=== PATIENT | female | born 1970 | race Caucasian/White ===

== ENCOUNTER 2018-02-08 17:27 | Emergency (ER) | payer SELFPAY ==
--- NOTE | 2018-02-08 18:11 | Emergency Department Record ---
History of Present Illness - General Chief complaint: Abscess Stated complaint: KNOT IN GROIN AREA Time Seen by Provider: 02/08/18 18:06 Source: Patient Mode of Arrival: Ambulatory Limitations: No limitations - History of Present Illness Initial comments: 48 yo female presents to ED for evaluation of swelling, pain, and drainage to the left vaginal region that began 2 days ago. Patient denies fevers, chills, nausea, vomiting, or recent illness. Patient reports a history of "borderline" DM, HTN, and hyperlipidemia. 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 MD complaint: Abscess/boil Onset/Timin -: Days(s) Location: Genitals Severity: Moderate Quality: Aching Consistency: Constant Improves with: None Worsens with: None Context: None Associated symptoms: Denies other symptoms Treatments Prior to Arrival: Attempted to drain pus at home - Related Data Home Medications Medication Instructions Recorded Confirmed Last Taken Clonazepam [Klonopin] 2 mg PO ASDIR 02/08/18 02/08/18 02/08/18 Duloxetine HCl [Cymbalta] 30 mg PO DAILY 02/08/18 02/08/18 02/07/18 Duloxetine HCl [Cymbalta] 60 mg PO DAILY 02/08/18 02/08/18 02/07/18 Previous Rx's Medication Instructions Recorded Clindamycin HCl 300 mg PO QID #27 capsule 02/08/18 Allergies Allergy/AdvReac Type Severity Reaction Status Date / Time Penicillins Allergy ANAPHYLAXIS Verified 02/08/18 17:56 Review of Systems Constitutional: Denies: Chills, Fever, Malaise, Night sweats Eyes: Denies: Eye discharge, Eye pain ENT: Denies: Congestion, Ear pain, Epistaxis Respiratory: Denies: Cough, Dyspnea Cardiovascular: Denies: Chest pain, Dyspnea on exertion Endocrine: Denies: Fatigue, Heat or cold intolerance Gastrointestinal: Denies: Abdominal pain, Nausea, Vomiting Genitourinary: Reports: Other (Pain to the left vaginal region). Denies: Incontinence, Retention Musculoskeletal: Denies: Arthralgia, Back pain Skin: Denies: Bruising, Change in color Neurological: Denies: Abnormal gait, Confusion, Headache Psychiatric: Denies: Anxiety Hematological/Lymphatic: Denies: Anemia, Blood Clots Physical Exam - General General Appearance: Alert, Oriented x3, Cooperative, Moderate distress Limitations: No limitations - Head Head exam: Atraumatic, Normocephalic, Normal inspection Head exam detail: negative: Abrasion, Contusion, Rudd's sign, General tenderness, Hematoma, Laceration - Eye Eye exam: Normal appearance. negative: Conjunctival injection, Periorbital swelling, Periorbital tenderness, Scleral icterus - ENT Ear exam: negative: Auricular hematoma, Auricular trauma Nasal Exam: negative: Active bleeding, Discharge, Dried blood, Foreign body Mouth exam: negative: Drooling, Laceration, Muffled voice, Tongue elevation - Neck Neck exam: Normal inspection. negative: Meningismus, Tenderness - Respiratory Respiratory exam: Normal lung sounds bilaterally. negative: Respiratory distress, Rhonchi, Stridor, Wheezes - Cardiovascular Cardiovascular Exam: Regular rate, Normal rhythm, Normal heart sounds - GI/Abdominal GI/Abdominal exam: Soft. negative: Rebound, Rigid, Tenderness - Rectal Rectal exam: Deferred - exam: Other (STS, induration, and fluctuance to the left vulva on examination.) - Extremities Extremities exam: Normal inspection. negative: Pedal edema, Tenderness - Back Back exam: Denies: CVA tenderness (R), CVA tenderness (L) - Neurological Neurological exam: Alert, Normal gait, Oriented X3 - Psychiatric Psychiatric exam: Normal affect, Normal mood - Skin Skin exam: Normal color. negative: Abrasion Type of lesion: negative: abrasion Course - Reevaluation(s) Reevaluation #1: 02/08/18 18:29 Procedure Note: Left labial region was cleaned and prepped in sterile fashion, anesthetized with 1.5 mL of 1% Lidocaine with epinephrine with good anesthesia. The greatest area of fluctuance was incised with #11 blade, probed to break up loculations with sero-sanguinous discharge. Area was left open to drain. Patient tolerated the procedure well without complications. Will initiate Clindamycin and arrange for follow-up with Dr. Vidal in the [facility] next Tuesday for further evaluation. Disposition Disposition: Discharge Clinical Impression: Abscess, vulva Disposition: Home, Self-Care Condition: (2) Stable Instructions: Abscess Incision and Drainage (ED) Additional Instructions: Return to ED if your symptoms worsen or if you have any concerns. Clindamycin as directed. Warm soaks twice daily. Follow-up with Dr. Vidal in the [facility] next Tuesday or your family doctor in 1-3 days as directed. Prescriptions: Clindamycin HCl 300 mg PO QID #27 capsule Referrals: BILL VIDAL [DOCTOR OF OSTEOPATH] - [facility] [Provider Group] Forms: Patient Portal Access Time of Disposition: 18:11 Quality - Quality Measures Quality Measures: N/A - Blood Pressure Screening Does Patient Have Any of the Following: No Blood Pressure Classification: Pre-Hypertensive BP Reading Systolic Measurement: 127 Diastolic Measurement: 72 Screening for High Blood Pressure: < Pre-Hypertensive BP, F/U Documented > [ G8950] Pre-Hypertensive Follow-up Interventions: Referral to alternative/primary care provider.
[2018-02-08] MEDS: CLINDAMYCIN 150 MG CAP PO ONE (18:31)
== END 2018-02-08 18:51 | disposition home or self-care (01) ==
LOC: ER 17:27
DX: N76.4 Abscess of vulva (principal); I10 Essential (primary) hypertension
CPT/HCPCS: 56405; 99284

== ENCOUNTER 2018-03-28 18:14 | Emergency (ER) | payer BC ==
[2018-03-28] MEDS ORDERED: ONDANSETRON HCL IV 4 MG/2 ML VIAL IVP ONE ×2 (18:37→19:38)
--- NOTE | 2018-03-28 18:43 | Emergency Department Record ---
History of Present Illness - General Chief complaint: Vomiting Stated complaint: VOMITING,CANT EAT, CANT URINATE Time Seen by Provider: 03/28/18 18:36 Source: Patient Mode of Arrival: Ambulatory Limitations: No limitations - History of Present Illness Initial comments: 48 yo female presents with nausea, vomiting and diarrhea since Tuesday. Non bloody. She continues to have several episodes daily of each. No known sick contacts. No fevers. The symptoms worsen with eating. No cough, shortness of breath, chest pain. She has lower abdominal cramps. Her urine is darker orange at this time. No current or recent antibiotics. PCP is the [facility]. MD complaint: Diarrhea, Nausea, Vomiting -: Days(s) Description of Vomiting: Watery Description of Diarrhea: Water Location: Other (across the lower abdomen) Radiation: Other (across the lower abdomen) Severity: Moderate Quality: Cramping Consistency: Intermittent Improves with: None Worsens with: Eating Context: Other Associated Symptoms: Loss of appetite, Nausea/vomiting, Other (diarrhea) - Related Data Previous Rx's Medication Instructions Recorded Dicyclomine HCl [Bentyl] 10 mg PO Q8H #20 cap 03/28/18 Metronidazole [Flagyl] 500 mg PO BID #14 tablet 03/28/18 Ondansetron [Zofran Odt] 4 mg PO Q8H #15 tab.rapdis 03/28/18 Allergies Allergy/AdvReac Type Severity Reaction Status Date / Time Penicillins Allergy ANAPHYLAXIS Verified 03/28/18 18:47 Review of Systems Constitutional: Denies: Chills, Fever, Malaise, Weakness Eyes: Denies: Eye discharge ENT: Denies: Congestion Respiratory: Denies: Cough, Dyspnea, Hemoptysis Cardiovascular: Denies: Chest pain, Syncope Endocrine: Denies: Fatigue Gastrointestinal: Reports: Abdominal pain, Diarrhea, Nausea, Vomiting. Denies: Constipation, Hematemesis, Hematochezia, Melena Genitourinary: Reports: Discharge (mucous like for several weeks). Denies: Dysuria, Incontinence, Retention (decreased output without retention), Urgency Musculoskeletal: Denies: Arthralgia, Back pain, Joint swelling, Myalgia, Neck pain Skin: Denies: Bruising, Change in color, Rash Neurological: Denies: Headache Psychiatric: Denies: Anxiety Hematological/Lymphatic: Denies: Easy bleeding, Easy bruising, Swollen glands Past Medical History - SOCIAL HISTORY Smoking Status: Never smoker Drug Use: None - RESPIRATORY Hx Respiratory Disorders: No - CARDIOVASCULAR Hx Cardio Disorders: No - NEURO Hx Neuro Disorders: No - GI Comment:: bariatric - Hx Genitourinary Disorders: No - ENDOCRINE Hx Endocrine Disorders: No - MUSCULOSKELETAL Hx Musculoskeletal Disorders: No - PSYCH Hx Psych Problems: Yes Hx Anxiety: Yes - HEMATOLOGY/ONCOLOGY Hx Hematology/Oncology Disorders: No Family Medical History Hx Heart Disease: Father, Grandparents Physical Exam - General General Appearance: Alert, Oriented x3, Cooperative, No acute distress Limitations: No limitations - Head Head exam: Normal inspection - Eye Eye exam: Normal appearance, PERRL. negative: Conjunctival injection, Scleral icterus - ENT ENT exam: Normal exam, Mucous membranes moist Ear exam: Normal external inspection Nasal Exam: Normal inspection Mouth exam: Normal external inspection - Neck Neck exam: Normal inspection, Tenderness - Respiratory Respiratory exam: Normal lung sounds bilaterally. negative: Accessory muscle use, Decreased breath sounds, Prolonged expiratory, Respiratory distress, Stridor, Wheezes - Cardiovascular Cardiovascular Exam: Regular rate, Normal rhythm, Normal heart sounds - GI/Abdominal GI/Abdominal exam: Soft, Normal bowel sounds, Tenderness (mild tenderness of a very soft lower abdomen). negative: Guarding, Rebound, Rigid - Rectal Rectal exam: Deferred - exam: Deferred - Extremities Extremities exam: Normal inspection - Back Back exam: Reports: Normal inspection. Denies: CVA tenderness (R), CVA tenderness (L) - Neurological Neurological exam: Alert, Normal gait, Oriented X3 - Psychiatric Psychiatric exam: Normal affect, Normal mood - Skin Skin exam: Dry, Intact, Normal color, Warm Course - Reevaluation(s) Reevaluation #1: 03/28/18 19:04 The vitals are without significant abnormalities The CBC demonstrates a hemoglobin of 8.8 but the MCV is 74 likely chronic. Normal WBC count. 03/28/18 19:08 The patient states she has known iron deficiency anemia for a long time. She has been as low as 6 in the past. 03/28/18 19:15 The UA is negative except small ketones 03/28/18 19:27 CMP and lipase were reviewed. K is 3.3. Otherwise no acute changes 03/28/18 19:31 The patient is doing better. Mild nausea still and not ready for PO. Will given IV Acetaminophen instead of PO. 03/28/18 20:33 Wet prep is positive for Clue Cells 03/28/18 20:[address] of the abdomen is negative for acute pathology, renal cyst, lipoma The patient was informed of the results We discussed home care, follow up and reasons to return Medical Decision Making - Lab Data Result diagrams: 03/28/18 18:50 03/28/18 18:50 Disposition Disposition: Discharge Clinical Impression: Bacterial vaginosis Vomiting Qualifiers: Vomiting type: unspecified Vomiting Intractability: unspecified Nausea presence : unspecified Qualified Code(s): R11.10 - Vomiting, unspecified Diarrhea Qualifiers: Diarrhea type: unspecified type Qualified Code(s): R19.7 - Diarrhea, unspecified Disposition: Home, Self-Care Condition: (1) Good Instructions: Bacterial Vaginosis (ED), Acute Nausea and Vomiting (ED), Acute Diarrhea (ED) Additional Instructions: Return to the ER if you have fever, uncontrolled vomiting, diarrhea, pain or any new concerns Slow advance the diet the next few days, starting with simple low fat foods. Stay hydrated. Call your doctor for a recheck after this ER visit to discuss the symptoms, tests and results Prescriptions: Dicyclomine HCl [Bentyl] 10 mg PO Q8H #20 cap Metronidazole [Flagyl] 500 mg PO BID #14 tablet Ondansetron [Zofran Odt] 4 mg PO Q8H #15 tab.rapdis Forms: Patient Portal Access Time of Disposition: 20:50 Quality - Quality Measures Quality Measures: N/A - Blood Pressure Screening Does Patient Have Any of the Following: No Blood Pressure Classification: Pre-Hypertensive BP Reading Systolic Measurement: 131 Diastolic Measurement: 79 Screening for High Blood Pressure: < Pre-Hypertensive BP, F/U Documented > [ G8950] Pre-Hypertensive Follow-up Interventions: Referral to alternative/primary care provider.
[2018-03-28] MEDS: 0.9 % SODIUM CHLORIDE 1,000 ML BAG IV ONE ×2 (18:59→19:34)
[2018-03-28 19:00] LABS: BASO % 0.4 % (0-6); GRAN % 64.3 % (47-80); HEMATOCRIT 30.7 % (35.0-47.0); HEMOGLOBIN 8.8 gm/dl (11.6-16.0); LYMPH % 24.1 % (16-45); MEAN CELL VOLUME 74.7 fl (81-97); MEAN CORPUSCULAR HEMOGLOBIN 21.4 pg (27-33); MEAN CORPUSCULAR HGB CONC 28.7 g/dl (32-36); MEAN PLATELET VOLUME 9.5 fl (7.4-10.4); MONO % 9.2 % (0-9); PLATELET COUNT 330 K/uL (130-400); RED BLOOD COUNT 4.11 M/uL (3.80-5.40); RED CELL DISTRIBUTION WIDTH 18.7 % (11.5-14.5); URINE APPEARANCE CLEAR; URINE BILIRUBIN NEGATIVE (NEGATIVE); URINE BLOOD NEGATIVE (NEGATIVE); URINE COLOR YELLOW; URINE GLUCOSE (UA) NEGATIVE (NEGATIVE); URINE KETONE 15 mg/dL (NEGATIVE); URINE LEUKOCYTE ESTERASE NEGATIVE (NEGATIVE); URINE NITRITE NEGATIVE (NEGATIVE); URINE PROTEIN TRACE (NEGATIVE); URINE UROBILINOGEN 0.2 E.U./dL (0.20 - 1.00); WHITE BLOOD COUNT W/O DIFF 5.6 K/uL (4.2-12.2)
[2018-03-28 19:07] LABS: URINE RBC NONE SEEN (NONE SEEN); URINE WBC NONE SEEN (0-2/hpf)
[2018-03-28 19:08] LABS: URINE MUCUS HEAVY
[2018-03-28 19:14] LABS: BLOOD UREA NITROGEN 12 mg/dL (6-20); CREATININE 0.7 mg/dL (0.5-0.9); EST GLOMERULAR FILTRATION RATE > 60 mL/min
[2018-03-28 19:15] LABS: TOTAL PROTEIN 7.3 g/dL (6.6-8.7)
[2018-03-28 19:17] LABS: GLUCOSE,RANDOM 91 mg/dL (74-109)
[2018-03-28 19:19] LABS: ALB/GLOB RATIO 1.7 (1.1-1.8); ALBUMIN 4.6 g/dL (4.0-5.0); ALKALINE PHOSPHATASE 50 U/L (35-104); ALT/SGPT 13 U/L (<33); AST/SGOT 22 U/L (10.0-35.0)
[2018-03-28 19:20] LABS: LIPASE 41 U/L (13-60)
[2018-03-28] MEDS ORDERED: POTASSIUM CHLORIDE 10 MEQ TAB PO ONE (19:27)
[2018-03-28] MEDS ORDERED: ACETAMINOPHEN 1,000 MG/100 ML BTL IVPB ONE (19:30)
[2018-03-28] MEDS ORDERED: KETOROLAC 30 MG/ML VIAL IVP ONE (19:54)
[2018-03-28] MEDS ORDERED: ONDANSETRON 4 MG ODT TABLET SL ONE (20:51)
[2018-03-30 16:10] LABS: GC SPECIMEN TYPE Vaginal
--- NOTE | 2018-03-31 10:24 | CT SCAN REPORT ---
EXAM: CT SCAN OF THE ABDOMEN AND PELVIS WITH CONTRAST HISTORY: LOWER ABDOMINAL PAIN WITH VOMITING AND DIARRHEA. TECHNIQUE: Standard CT imaging of the abdomen and pelvis was performed with intravenous contrast. 100 ml of Omnipaque 300 were administered. Comparison: None. FINDINGS: The lung bases are clear. The liver, gallbladder, biliary tree, pancreas, spleen, and adrenal glands are normal. A 1.8 cm cyst is present within the posterior cortex of the left kidney. The kidneys and ureters are otherwise unremarkable. The aorta is normal in caliber. There is no retroperitoneal lymphadenopathy. The patient is status post gastric sleeve procedure. No complicating features are identified. The large and small bowel loops are unremarkable. The appendix is visualized and is normal. There is no pneumoperitoneum or ascites. The uterus and adnexa appear normal. The urinary bladder is decompressed. There are no focal abnormalities. Note is made of a lipoma within the inferolateral right hemipelvis within the retroperitoneal space. This measures approximately 7.1 cm AP x 7.5 cm transverse x 6.6 cm in height. There are no suspicious characteristics. Degenerative changes are present within the spine. There is minor anterolisthesis of L4 on L5 secondary to bilateral facet arthropathy. There are no acute osseous abnormalities. IMPRESSION: 1. NO ACUTE INTRAABDOMINAL PATHOLOGY. 2. LEFT RENAL CYST. 3. 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 JOB NUMBER: [id number] MTDD
== END 2018-03-28 21:13 | disposition home or self-care (01) ==
LOC: ER 18:14
DX: N76.0 Acute vaginitis (principal); R19.7 Diarrhea, unspecified; R11.2 Nausea with vomiting, unspecified
CPT/HCPCS: 99284 ×2; 96376; 96365; 96375; 96361; 83690; 85025; 80053; 81001; 74177; Q0111; Q9967; J1885; J2405; 87210; J7030